=== PATIENT | male | born 1975 | race Caucasian/White ===

== ENCOUNTER 2020-03-07 13:50 | Emergency (ER) | payer BC ==
[~2020-03-07] VITALS: Ht 167.6 cm; Wt 85.7 kg
[2020-03-07 13:50] VITALS: BP_SYST 154
[2020-03-07 13:56] VITALS: BP_SYST 142
[2020-03-07] MEDS ORDERED: DIPH-TET-PERTUS Vaccine 0.5 ML VIAL (ADACEL) I.M. ONE (14:15)
== END 2020-03-07 13:58 | disposition home or self-care (01) ==
LOC: SED 13:50
DX: M79.662 Pain in left lower leg (principal); W54.0XXA Bitten by dog, initial encounter; Y93.89 Activity, other specified; Y92.89 Other specified places as the place of occurrence of the external cause; Y99.8 Other external cause status
CPT/HCPCS: 99283

== ENCOUNTER 2020-10-05 13:24 | Emergency (ER) | payer BC ==
[~2020-10-05] VITALS: Ht 172.7 cm; Wt 69.9 kg
--- NOTE | 2020-10-05 13:40 | NUR ---
Patient to ER bed 7 to gown for evaluation. Side rails up. Report given to CORNELIA Titus.
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
[2020-10-05 13:52] VITALS: BP_SYST 157
--- NOTE | 2020-10-05 14:10 | NUR ---
ER DR. BOURNE AT THE BEDSIDE EXAMINING PT
--- NOTE | 2020-10-05 14:12 | NUR ---
Patient transported to radiology via WC, accompanied by STAFF.
[2020-10-05] MEDS ORDERED: IBUP-1969 PO (14:41)
--- NOTE | 2020-10-05 14:45 | NUR ---
Patient given written and verbal discharge instructions and verbalizes understanding. ER MD discussed with patient the results and treatment provided. Patient in stable condition. ID arm band removed. Rx of Ibuprofen given. Patient educated on pain management and to follow up with PMD. Pain Scale 3/10 tolerable for patient Opportunity for questions provided and answered. Medication side effect fact sheet provided.
[2020-10-05 14:53] VITALS: BP_SYST 157
== END 2020-10-05 14:53 | disposition home or self-care (01) ==
LOC: SED 13:24
DX: S42.001A Fracture of unspecified part of right clavicle, initial encounter for closed fracture (principal); W18.39XA Other fall on same level, initial encounter; Y93.89 Activity, other specified; Y92.89 Other specified places as the place of occurrence of the external cause; Y99.8 Other external cause status
CPT/HCPCS: 73000-TC; 99283